=== PATIENT | male | born 1980 | race African-American/Black ===

== ENCOUNTER 2020-07-01 13:24 | Emergency (ER) | payer SELFPAY ==
[2020-07-01 13:35] VITALS: BP 145/86; PULSE 90
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
== END 2020-07-01 14:59 | disposition home or self-care (01) ==
LOC: JERFT 13:24
DX: S70.01XA Contusion of right hip, initial encounter (principal); W19.XXXA Unspecified fall, initial encounter
CPT/HCPCS: 73700-TC-RT; 99284-25

== ENCOUNTER 2022-02-13 14:03 | Emergency (ER) | payer SELFPAY ==
[2022-02-13 14:14] VITALS: BP 161/103; PULSE 81; TEMP 98.5; BMI 44.9
[2022-02-13 15:15] LABS: BASO % 0.8 % (0-2.0); EOS % 2.6 % (0-4.5); HEMATOCRIT 46.9 % (35.4-49); HEMOGLOBIN 15.9 GM/dL (11.7-16.9); MCH 32.4 pg (25.7-33.7); MCHC 33.8 g/dl (32.0-35.9); MEAN CELL VOLUME 95.7 fl (80-96); MEAN PLT VOLUME 7.9 fl (7.5-11.1); MONO % 10.8 % (3.8-10.2); NEUT % 47.8 % (42.8-82.8); PLATELET COUNT 363 10^3/uL (134-434); RDW 15.2 % (11.9-15.9); WHITE BLOOD COUNT 4.8 K/mm3 (4.0-10.0)
[2022-02-13 15:38] LABS: CALCIUM 9.7 mg/dL (8.5-10.1)
[2022-02-13 15:39] LABS: BLOOD UREA NITROGEN 14.5 mg/dL (7-18)
[2022-02-13 15:42] LABS: CREATININE 1.1 mg/dL (0.55-1.3)
[2022-02-13 15:43] LABS: BILIRUBIN,TOTAL 0.5 mg/dL (0.2-1)
[2022-02-13 15:44] LABS: TOT PROT 7.6 g/dl (6.4-8.2)
== END 2022-02-13 16:15 | disposition home or self-care (01) ==
LOC: JERFT 14:03
DX: M71.22 Synovial cyst of popliteal space [Baker], left knee (principal)
CPT/HCPCS: 36415; 73562-TC-LT-FY; 80053; 83036; 84550; 85025; 93971-TC; 99285-25